=== PATIENT | female | born 1995 | race Caucasian/White ===

== ENCOUNTER 2021-06-26 13:01 | Inpatient (IN) | payer MEDICAID, SELFPAY ==
[~2021-06-26] VITALS: Ht 170.2 cm; Wt 59.9 kg
[2021-06-26] VITALS (10 sets, daily range): BP systolic 76–156
[~2021-06-26 13:01] MED LIST: FERR-69 PO; HYD10 PO; METH-373 PO; PROP10TA10 PO
--- NOTE | 2021-06-26 13:01 | NUR ---
BROUGHT IN BY [facility], PLACED IN BED #4 AND TRIAGED. REPORT GIVEN TO EMPERATRIZ
--- NOTE | 2021-06-26 13:05 | NUR ---
Pt brought by [facility] to name, pt presents to ER with low BP and altered level of conciousness , per family patient has been altered after getting covid vaccine 2 days ago, family also states she has not taken her thyroid medications, BP 156/86, HR 92, O2 96%, respirations even and unlabored, no N/V noted at this time, will cont to monitor.
[2021-06-26 13:46] LABS: BASOPHILS # (AUTO) 0.1 K/uL (0.0-0.2); BASOPHILS % (AUTO) 1.1 % (0.0-2.0); EOSINOPHILS # (AUTO) 0.1 K/uL (0.0-0.4); EOSINOPHILS % (AUTO) 1.4 % (0.0-4.0); HEMATOCRIT 34.7 % (36-48); HEMOGLOBIN 11.5 g/dL (12.0-16.0); LYMPHOCYTES # (AUTO) 2.7 K/uL (1.0-5.5); LYMPHOCYTES % (AUTO) 46.5 % (20.5-51.5); MEAN CORPUSCULAR HEMOGLOBIN 26 pg (27-31); MEAN CORPUSCULAR HGB CONC 33 % (32-36); MEAN CORPUSCULAR VOLUME 79 fL (79.0-98.0); MONOCYTES # (AUTO) 0.8 K/uL (0.0-1.0); MONOCYTES % (AUTO) 13.8 % (1.7-9.3); NEUTROPHILS # (AUTO) 2.2 K/uL (1.8-7.7); NEUTROPHILS % (AUTO) 37.2 % (40.0-70.0); PLATELET COUNT (AUTO) 141 K/uL (130-430); RED BLOOD CELL COUNT(AUTO) 4.37 MIL/uL (4.2-6.2); RED CELL DISTRIBUTION WIDTH 15.7 % (9.0-15.0); WHITE BLOOD COUNT (AUTO) 5.8 K/uL (4.8-10.8)
--- NOTE | 2021-06-26 13:51 | NUR ---
# 16 FR In and Out catheter with use of sterile technique. Immediate return of ml urine noted. Urine sample collected and sent to lab. Pt tolerated procedure WITH ASSISTANCE OF DEIRDRE MERRITT. Patient unable to toilet self.
[2021-06-26 14:06] LABS: ANION GAP 11 (5-15); CALCIUM 7.5 mg/dL (8.4-11.0); CHLORIDE 96 mmol/L (98-107); CREATININE 2.69 mg/dL (0.55-1.30); GLUCOSE 98 mg/dL (70-99); POTASSIUM 5.7 mmol/L (3.5-5.1); SODIUM SERUM 126 mmol/L (136-145); UREA NITROGEN, BLOOD 50 mg/dL (8-21)
[2021-06-26 14:09] LABS: BILIRUBIN,URINE NEGATIVE (NEGATIVE); BLOOD, URINE NEGATIVE (NEGATIVE); CLARITY/URINE CLEAR (CLEAR); COLOR,URINE YELLOW (YELLOW); GLUCOSE,URINE 1+ (NEGATIVE); KETONES,URINE NEGATIVE (NEGATIVE); LEUKOCYTE ESTERASE ,URINE TRACE (NEGATIVE); NITRITE, URINE NEGATIVE (NEGATIVE); PH,URINE 5.5 (5.0-8.0); PROTEIN URINE NEGATIVE (NEGATIVE); UROBILINOGEN,URINE 0.2 (0.2-1.0)
[2021-06-26 14:25] LABS: ALANINE AMINOTRANSFERASE 40 U/L (12-78); ALBUMIN 2.7 g/dL (3.4-4.8); ASPARTATE AMINOTRANSFERASE 34 U/L (10-37); FREE T4 (FREE THYROXINE) 2.8 ng/dl (0.8-1.5); TOTAL BILIRUBIN 0.6 mg/dL (0.0-1.0)
[2021-06-26 14:35] LABS: ACETAMINOPHEN < 1 ug/mL (1-30); ALCOHOL, BLOOD < 3 mg/dL (<10); GFR AFRICAN AMERICAN 27 mL/min (>90)
[2021-06-26 14:43] LABS: BARBITURATE, URINE NEGATIVE (NEG <=200); BENZODIAZEPINE, URINE NEGATIVE (NEG <=150); CANNABINOID, URINE NEGATIVE (NEG <=50); COCAINE, URINE NEGATIVE (NEG <=150); METHAMPHETAMINES SCREEN,URINE NEGATIVE (NEG <=500); OPIATE, URINE NEGATIVE (NEG <=100); PHENCYCLIDINE SCREEN,URINE NEGATIVE (NEG <=25); UR TRICYCLIC ANTIDEPRESSANTS NEGATIVE (NEG <=300); URINE AMPHETAMINE NEGATIVE (NEG <=500); URINE METHADONE NEGATIVE (NEG <=200); URINE OXYCODONE SCREEN NEGATIVE (NEG <=100); URINE PROPOXYPHENE SCREEN NEGATIVE (NEG <=300)
[2021-06-26 14:44] LABS: BACTERIA,URINE RARE /HPF (None Seen); HYALINE CASTS, URINE 0-10 /LPF (None Seen); RBC,URINE 0-3 /HPF (0-3); WBC,URINE 0-3 /HPF (0-3)
[2021-06-26 14:45] LABS: CALCIUM OXALATE CRYSTALS,UR 0-10 /HPF (None Seen); MUCUS,URINE 2+ /LPF (None Seen)
[2021-06-26 14:58] LABS: THYROID STIMULATING HORMONE < 0.01 uIu/mL (0.36-3.74)
--- NOTE | 2021-06-26 15:09 | NUR ---
PT LAYING IN BED, RESP EVEN AND UNLABORED, IN NAD. BP 79/33, HR-106. DR NAVARRO INFORMED, ORDERS FOR ANOTHER BOLUS. SAFETY PRECAUTIONS IN PLACE.
[2021-06-26] MEDS ORDERED: NACL 0.9% 1,000 ML IV ONE (15:30)
--- NOTE | 2021-06-26 16:13 | NUR ---
PT WITH EYES CLOSED, IN NAD. EASILY AROUSABLE, ALERT, IN NAD. DENIES ANY PAIN. BP 78/43, HR-89. DR NAVARRO INFORMED, NO FURTHER ORDERS AT THIS TIME. WILL BE ADMITTING TO ICU.
--- NOTE | 2021-06-26 16:51 | NUR ---
RN NOTES ADMITTED FROM ER FOR ELECTROLYTES IMBALANCE. CAME IN VIA GURNEY, PATIENT IS AWAKE AND ALERT, NOT IN ACUTE DISTRESS. ADMISSION CARE DONE, SINUS TACHYCARDIA ON THE MONITOR. SPO2 100% ON ROOM AIR. INITIAL VITAL SIGN AND ASSESSMENT DONE AND RECORDED. DENIES ANY DISCOMFORT AT THIS TIME. PATIENT KEPT COMFORTABLE. WILL CONTINUE TO MONITOR PATIENT.
--- NOTE | 2021-06-26 17:14 | NUR ---
Called Dr. Mathews with a consult, spoke with Beckie from the exchange
--- NOTE | 2021-06-26 17:21 | NUR ---
Called Dr. Stokes with a consult, spoke with Anne from the exchange
--- NOTE | 2021-06-26 17:25 | NUR ---
Dr. Guzman is aware of consult
--- NOTE | 2021-06-26 17:26 | NUR ---
MD CONSULT SPOKE TO DR. GENAO-SAYED ABOUT CONSULT, WILL COME AND SEE PATIENT.
--- NOTE | 2021-06-26 17:30 | NUR ---
Patient will be admitted to care of DR RUIZ. Admitted to unit. Will go to room . Belongings list completed. Complete and up to date summary report printed. SBAR report to be given at bedside with opportunity for questions.
[2021-06-26] MEDS: NACL 0.9% 1,000 ML IV SCH (17:40)
--- NOTE | 2021-06-26 18:10 | NUR ---
RN NOTES BP - 76/38 DR. Cecille RUIZ CALLED FOR ORDERS, WILL GIVE PATIENT 1 LITER NS BOLUS ORDERED.
--- NOTE | 2021-06-26 19:15 | NUR ---
Opening notes Received report from endorsing morning shift RN for continuity of care. Patient is lying in bed with IVF NS @ 100 mL/hr. Patient's vital signs blood pressure 113/61, heart rate 127, respirations 17, and SPO2 94%. Bed is locked and in lowest position. Fall and safety precautions is in place.
[2021-06-27] VITALS (23 sets, daily range): BP systolic 75–96
--- NOTE | 2021-06-27 01:03 | NUR ---
Paged Dr. Wong Doroteo s/w Meg[facility]
--- NOTE | 2021-06-27 01:18 | NUR ---
waiting for Dr Wong to call back to report patient's temperature 100.7 and no PRN Tylenol available.
[2021-06-27] MEDS: NACL 0.9% 1,000 ML IV SCH ×3 (01:45→09:32)
--- NOTE | 2021-06-27 01:54 | NUR ---
Received call from Dr Wong. Orders for tylenol received; refer to MAR for details.
[2021-06-27] MEDS ORDERED: ACETAMINOPHEN 325 MG TABLET PO PRN ×3 (02:00→07:15)
[2021-06-27] MEDS ORDERED: ACETAMINOPHEN 325 MG TABLET ONE (02:11)
--- NOTE | 2021-06-27 06:01 | NUR ---
Left a message to Dr. Reza-Sayed
[2021-06-27 06:07] LABS: BASOPHILS % (AUTO) 0.1 % (0.0-2.0); EOSINOPHILS # (AUTO) 0.2 K/uL (0.0-0.4); EOSINOPHILS % (AUTO) 3.6 % (0.0-4.0); HEMATOCRIT 27.8 % (36-48); HEMOGLOBIN 9.4 g/dL (12.0-16.0); LYMPHOCYTES # (AUTO) 2.4 K/uL (1.0-5.5); LYMPHOCYTES % (AUTO) 50.7 % (20.5-51.5); MEAN CORPUSCULAR HEMOGLOBIN 27 pg (27-31); MEAN CORPUSCULAR HGB CONC 34 % (32-36); MEAN CORPUSCULAR VOLUME 79 fL (79.0-98.0); MONOCYTES # (AUTO) 0.8 K/uL (0.0-1.0); MONOCYTES % (AUTO) 16.6 % (1.7-9.3); NEUTROPHILS # (AUTO) 1.4 K/uL (1.8-7.7); PLATELET COUNT (AUTO) 131 K/uL (130-430); RED BLOOD CELL COUNT(AUTO) 3.51 MIL/uL (4.2-6.2); RED CELL DISTRIBUTION WIDTH 15.4 % (9.0-15.0); WHITE BLOOD COUNT (AUTO) 4.8 K/uL (4.8-10.8)
[2021-06-27 06:40] LABS: ALBUMIN 2.4 g/dL (3.4-4.8); CALCIUM 7.7 mg/dL (8.4-11.0); CREATININE 0.87 mg/dL (0.55-1.30); POTASSIUM 4.6 mmol/L (3.5-5.1); TOTAL BILIRUBIN 0.3 mg/dL (0.0-1.0)
[2021-06-27] MEDS ORDERED: NALOXONE HCL 0.4 MG/ML AMP (NARCAN) IVP PRN ×2 (06:45)
[2021-06-27] MEDS ORDERED: LORazepam 2 MG/ML VIAL IVP PRN (06:45)
[2021-06-27] MEDS ORDERED: HYDROcodone/ACETAMIN 5-325 MG TAB (NORCO/ VICODIN) PO PRN (06:45)
[2021-06-27] MEDS ORDERED: ONDANSETRON HCL 4 MG/2 ML VIAL IVP PRN (06:45)
[2021-06-27] MEDS ORDERED: HYDROcodone/ACETAMIN 10-325 MG TAB PO PRN (06:45)
[2021-06-27] MEDS ORDERED: HYDROCORTISONE SOD SUCC 100 MG/2 ML VIAL IVP ONE (08:30)
[2021-06-27] MEDS ORDERED: HYDROCORTISONE 10 MG TABLET (CORTEF) PO SCH (09:00)
[2021-06-27] MEDS: cefTRIAXone 1 GM IVPB PREMIX 50 ML IV SCH (09:40)
[2021-06-27] MEDS: FERROUS SULFATE 325 MG TABLET.DR PO SCH ×2 (09:41→18:12)
[2021-06-27 09:48] LABS: HCG,QUAL RESULT NEGATIVE (NEGATIVE)
--- NOTE | 2021-06-27 11:10 | NUR ---
Patient BG was 72 this morning, reassessed BG was 123.
[2021-06-27] MEDS ORDERED: PROPRANOLOL HCL 10 MG TABLET (INDERAL) PO SCH ×2 (12:00→21:00)
[2021-06-27] MEDS ORDERED: methIMAzole 5 MG TABLET PO SCH ×2 (14:00→14:30)
--- NOTE | 2021-06-27 14:20 | NUR ---
DR Reza-Saygretchen assessed patient and made adjustments to the medications, suggested patient can be down graded to tele for continued monitoring of BP, BP low and ordered 500 bolus NS. Instructed if systolic is less then 90 to hold propranolol.
[2021-06-27] MEDS: HYDROCORTISONE SOD SUCC 100 MG/2 ML VIAL IVP SCH (14:26)
--- NOTE | 2021-06-27 14:30 | NUR ---
Dr. Rios came to see the patient , he said to bolus patient 500 ml of ns, and continue propanalol 20 mg bid but hold if sbp is <90
--- NOTE | 2021-06-27 18:15 | NUR ---
RN NOTES SPOKE TO DR. Regino STRICKLAND REGARDING CONSULT, WILL COME AND SEE PATIENT.
--- NOTE | 2021-06-27 19:04 | NUR ---
Closing Notes Patient has been alert and orientated all day, follows commands, calls when needing to use the restroom, takes medication with no issues, did not have a bowel movement today.
--- NOTE | 2021-06-27 22:14 | NUR ---
Pt BP is low with a SBP often in the 70's... HR WNLs when IV fluids are running... often elevate when IV not flowing due to pt bending left arm. Pt is hard to wake and once she opens her eyes they drift right back closed. Pt refused oral medication.
[2021-06-28] VITALS (23 sets, daily range): BP systolic 84–100
[2021-06-28] MEDS: methIMAzole 5 MG TABLET PO SCH ×3 (04:46→20:51)
[2021-06-28] MEDS: HYDROCORTISONE SOD SUCC 100 MG/2 ML VIAL IVP SCH ×4 (04:48→23:07)
[2021-06-28] MEDS: NACL 0.9% 1,000 ML IV SCH ×2 (04:50→16:22)
[2021-06-28 06:48] LABS: ALBUMIN 2.4 g/dL (3.4-4.8); CREATININE 0.58 mg/dL (0.55-1.30); PHOSPHORUS 3.9 mg/dL (2.7-4.5); POTASSIUM 4.5 mmol/L (3.5-5.1); TOTAL BILIRUBIN 0.2 mg/dL (0.0-1.0)
[2021-06-28 06:53] LABS: CALCIUM 6.9 mg/dL (8.4-11.0)
--- NOTE | 2021-06-28 06:56 | NUR ---
DR. Madai RUIZ MD PAGED AT THIS TIME FOR CRITICAL RESULTS. SPOKE WITH SHANNON AT THE EXCHANGE.
[2021-06-28] MEDS ORDERED: CALCIUM GLUCONATE 1 GM in NS 100 ML IV ONE (07:15)
[2021-06-28 07:23] LABS: C-REACTIVE PROTEIN QUANT 4.2 mg/dL (0-0.5)
--- NOTE | 2021-06-28 07:24 | NUR ---
Pt's calcium was 6.9 MD Wong was contacted see order
[2021-06-28 07:55] LABS: BASOPHILS % (AUTO) 0.3 % (0.0-2.0); HEMATOCRIT 27.2 % (36-48); LYMPHOCYTES # (AUTO) 0.8 K/uL (1.0-5.5); LYMPHOCYTES % (AUTO) 21.2 % (20.5-51.5); MEAN CORPUSCULAR HEMOGLOBIN 26 pg (27-31); MEAN CORPUSCULAR HGB CONC 33 % (32-36); MEAN CORPUSCULAR VOLUME 79 fL (79.0-98.0); MONOCYTES # (AUTO) 0.3 K/uL (0.0-1.0); MONOCYTES % (AUTO) 6.6 % (1.7-9.3); NEUTROPHILS # (AUTO) 2.7 K/uL (1.8-7.7); NEUTROPHILS % (AUTO) 71.9 % (40.0-70.0); PLATELET COUNT (AUTO) 126 K/uL (130-430); RED BLOOD CELL COUNT(AUTO) 3.43 MIL/uL (4.2-6.2); RED CELL DISTRIBUTION WIDTH 15.6 % (9.0-15.0); WHITE BLOOD COUNT (AUTO) 3.8 K/uL (4.8-10.8)
--- NOTE | 2021-06-28 08:00 | NUR ---
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
[2021-06-28] MEDS: FERROUS SULFATE 325 MG TABLET.DR PO SCH ×2 (08:11→17:58)
[2021-06-28] MEDS: cefTRIAXone 1 GM IVPB PREMIX 50 ML IV SCH (09:33)
[2021-06-28 13:42] LABS: ERYTHROCYTE SEDIMENTATION RATE 16 MM/HR (0-20)
--- NOTE | 2021-06-28 16:07 | NUR ---
Dietitian Recommendations * Regular, high fiber diet PILY RD Please refer to Nutrition Assessment for details. Addendum: 06/28/21 at [address] Amended: Links added.
[2021-06-28] MEDS ORDERED: INSULIN ASPART 100 UNITS/ML, 10 ML VIAL (NovoLOG) SUBCUT PRN (17:00)
[2021-06-28] MEDS ORDERED: INSULIN LISPRO SLIDING SCALE 100 UNITS/ML VIAL (humaLOG) SUBCUT PRN (17:15)
[2021-06-28] MEDS: PROPRANOLOL HCL 10 MG TABLET (INDERAL) PO SCH (20:50)
[2021-06-29] VITALS (15 sets, daily range): BP systolic 94–108
[2021-06-29] MEDS: NACL 0.9% 1,000 ML IV SCH ×2 (03:45→04:16)
[2021-06-29] MEDS: HYDROCORTISONE SOD SUCC 100 MG/2 ML VIAL IVP SCH ×2 (06:06→13:50)
--- NOTE | 2021-06-29 06:13 | NUR ---
PER DR. MITCH KULKARNI FOR PT TO TRANSFER TO TELE.
[2021-06-29 07:07] LABS: BASOPHILS % (AUTO) 0.1 % (0.0-2.0); HEMATOCRIT 25.4 % (36-48); HEMOGLOBIN 8.4 g/dL (12.0-16.0); LYMPHOCYTES # (AUTO) 1.2 K/uL (1.0-5.5); LYMPHOCYTES % (AUTO) 28.2 % (20.5-51.5); MEAN CORPUSCULAR HEMOGLOBIN 26 pg (27-31); MEAN CORPUSCULAR HGB CONC 33 % (32-36); MEAN CORPUSCULAR VOLUME 78 fL (79.0-98.0); MONOCYTES # (AUTO) 0.3 K/uL (0.0-1.0); MONOCYTES % (AUTO) 6.7 % (1.7-9.3); NEUTROPHILS # (AUTO) 2.9 K/uL (1.8-7.7); PLATELET COUNT (AUTO) 162 K/uL (130-430); RED BLOOD CELL COUNT(AUTO) 3.23 MIL/uL (4.2-6.2); RED CELL DISTRIBUTION WIDTH 15.5 % (9.0-15.0); WHITE BLOOD COUNT (AUTO) 4.4 K/uL (4.8-10.8)
[2021-06-29 07:31] LABS: CALCIUM 7.3 mg/dL (8.4-11.0); CREATININE 0.66 mg/dL (0.55-1.30); PHOSPHORUS 2.2 mg/dL (2.7-4.5); POTASSIUM 4.2 mmol/L (3.5-5.1)
[2021-06-29 08:30] LABS: C-REACTIVE PROTEIN QUANT 2.2 mg/dL (0-0.5)
[2021-06-29] MEDS: FERROUS SULFATE 325 MG TABLET.DR PO SCH ×2 (08:58→17:02)
[2021-06-29] MEDS: cefTRIAXone 1 GM IVPB PREMIX 50 ML IV SCH (08:59)
[2021-06-29] MEDS: PROPRANOLOL HCL 10 MG TABLET (INDERAL) PO SCH (09:01)
[2021-06-29] MEDS: methIMAzole 5 MG TABLET PO SCH (09:01)
[2021-06-29 11:37] LABS: ERYTHROCYTE SEDIMENTATION RATE 16 MM/HR (0-20)
[2021-06-29] MEDS ORDERED: NA PHOS 15 MM in NS 250 ML IV ONE (13:00)
[2021-06-29] MEDS ORDERED: HYDROCORTISONE 10 MG TABLET (CORTEF) PO ONE (16:00)
[2021-06-29] MEDS ORDERED: PROP10TA10 PO (17:13)
[2021-06-29] MEDS ORDERED: HYD10 PO (17:13)
[2021-06-29] MEDS ORDERED: FERR-69 PO (17:13)
[2021-06-29] MEDS ORDERED: METH-373 PO (17:13)
--- NOTE | 2021-06-29 18:17 | NUR ---
Obtained order to d/c pt home. Reviewed d/c instructions with pt and pt verbalized understanding, all questions answered. Pt belonging list completed. D/c iv site and pt tolerated well. Reviewed new medication reconcilation and pt verbalized understand. pt to f/u with primary md on thursday. prescriptions sent to pts' pharmacy.
--- NOTE | 2021-06-29 19:00 | NUR ---
Escorted our via wheelchair, with significant other, Tien Nolasco. No distress.
[2021-06-29] MEDS ORDERED: HYDROCORTISONE 10 MG TABLET (CORTEF) PO SCH (21:00)
== END 2021-06-29 19:00 | disposition home or self-care (01) | DRG 427 ==
LOC: SED 13:01 → SIC 15:39
PROVIDERS: ADMIT Preventive Medicine Preventive Medicine/Occupational Environmental Medicine; ATTEND Preventive Medicine Preventive Medicine/Occupational Environmental Medicine
DX: E05.90 Thyrotoxicosis, unspecified without thyrotoxic crisis or storm (principal); D61.818 Other pancytopenia; E43 Unspecified severe protein-calorie malnutrition; G93.40 Encephalopathy, unspecified; N17.9 Acute kidney failure, unspecified; I95.9 Hypotension, unspecified; E03.9 Hypothyroidism, unspecified; E87.1 Hypo-osmolality and hyponatremia; E27.1 Primary adrenocortical insufficiency; N39.0 Urinary tract infection, site not specified; E86.0 Dehydration; E87.5 Hyperkalemia; E83.39 Other disorders of phosphorus metabolism; E83.52 Hypercalcemia; E88.09 Other disorders of plasma-protein metabolism, not elsewhere classified; Z20.822 Contact with and (suspected) exposure to COVID-19; N18.9 Chronic kidney disease, unspecified; R73.9 Hyperglycemia, unspecified; T38.0X5A Adverse effect of glucocorticoids and synthetic analogues, initial encounter; Y92.89 Other specified places as the place of occurrence of the external cause; Z79.899 Other long term (current) drug therapy; Z68.20 Body mass index [BMI] 20.0-20.9, adult
CPT/HCPCS: 36415; 71045; 80048; 80053; 80307; 81000; 82140; 82962; 83605; 83735; 84100; 84439; 84443; 84484; 84703; 85025; 85651-TC; 86140; 87040; 87081; 87086; 96360; 99285; G0480; G0481; G0482; J0610; J0696; J1720; J7050

== ENCOUNTER 2021-09-15 15:50 | Emergency (ER) | payer MEDICAID ==
[~2021-09-15] VITALS: Ht 170.2 cm; Wt 58.1 kg
[2021-09-15 16:30] VITALS: BP_SYST 122
[2021-09-15] MEDS ORDERED: TETRACAINE HCL/PF 0.5% OPHTHALMIC DROPS 4 ML OP ONE (16:45)
[2021-09-15] MEDS ORDERED: FLUORESCEIN SODIUM 1 MG OPHTHALMIC STRIP OP ONE (16:45)
--- NOTE | 2021-09-15 17:25 | NUR ---
In ER bed 5. Has bilateral eye redness for 3 days. Awaiting
--- NOTE | 2021-09-15 17:30 | NUR ---
ER at bedside examining patient.
--- NOTE | 2021-09-15 18:00 | NUR ---
Pt c/o eye irritation with no resolution with use of medication for conjunctivitis.
--- NOTE | 2021-09-15 18:30 | NUR ---
Pt received eye exam by Dr. Iniguez. Pt tolerated well.
[2021-09-15] MEDS ORDERED: POLYTRIM EACH EYE (18:59)
[2021-09-15] MEDS ORDERED: OLOP2.5D11 EACH EYE (18:59)
--- NOTE | 2021-09-15 19:25 | NUR ---
Patient given written and verbal discharge instructions and verbalizes understanding. ER SUNNI JAIME discussed with patient the results and treatment provided. Patient in stable condition. ID arm band removed. Rx of EYE GTTS given. Patient educated on pain management and to follow up with PMD. Pain Scale 0. Opportunity for questions provided and answered. Medication side effect fact sheet provided.
== END 2021-09-15 19:46 | disposition home or self-care (01) ==
LOC: SED 15:50
DX: H10.33 Unspecified acute conjunctivitis, bilateral (principal); Z79.899 Other long term (current) drug therapy
CPT/HCPCS: 99283

== ENCOUNTER 2021-09-23 20:38 | Emergency (ER) | payer MEDICAID ==
[~2021-09-23] VITALS: Ht 167.6 cm; Wt 54.4 kg
[~2021-09-23 20:38] MED LIST changes: +OLOP2.5D11 EACH EYE; +POLYTRIM EACH EYE
[2021-09-23 20:52] VITALS: BP_SYST 106
[2021-09-23 21:28] LABS: BASOPHILS # (AUTO) 0.1 K/uL (0.0-0.2); BASOPHILS % (AUTO) 0.5 % (0.0-2.0); EOSINOPHILS # (AUTO) 0.2 K/uL (0.0-0.4); EOSINOPHILS % (AUTO) 1.8 % (0.0-4.0); HEMATOCRIT 47.5 % (36-48); HEMOGLOBIN 16.2 g/dL (12.0-16.0); LYMPHOCYTES % (AUTO) 24.6 % (20.5-51.5); MEAN CORPUSCULAR HEMOGLOBIN 29 pg (27-31); MEAN CORPUSCULAR HGB CONC 34 % (32-36); MEAN CORPUSCULAR VOLUME 86 fL (79.0-98.0); MONOCYTES % (AUTO) 8.4 % (1.7-9.3); NEUTROPHILS # (AUTO) 7.9 K/uL (1.8-7.7); NEUTROPHILS % (AUTO) 64.7 % (40.0-70.0); PLATELET COUNT (AUTO) 394 K/uL (130-430); RED BLOOD CELL COUNT(AUTO) 5.55 MIL/uL (4.2-6.2); RED CELL DISTRIBUTION WIDTH 15.9 % (9.0-15.0); WHITE BLOOD COUNT (AUTO) 12.3 K/uL (4.8-10.8)
[2021-09-23 21:37] LABS: ANION GAP 9 (5-15); CALCIUM 9.4 mg/dL (8.4-11.0); CHLORIDE 96 mmol/L (98-107); CREATININE 0.84 mg/dL (0.55-1.30); GLUCOSE 136 mg/dL (70-99); POTASSIUM 4.5 mmol/L (3.5-5.1); SODIUM SERUM 131 mmol/L (136-145); UREA NITROGEN, BLOOD 17 mg/dL (8-21)
[2021-09-23 21:49] LABS: GFR AFRICAN AMERICAN 105 mL/min (>90)
[2021-09-23 21:53] LABS: STREPTOCOCCUS A SCREEN (RAPID) NEGATIVE (NEGATIVE)
[2021-09-23 21:55] LABS: ALANINE AMINOTRANSFERASE 29 U/L (12-78); ALBUMIN 3.8 g/dL (3.4-4.8); ASPARTATE AMINOTRANSFERASE 26 U/L (10-37); FREE T4 (FREE THYROXINE) 1.8 ng/dl (0.8-1.5); THYROID STIMULATING HORMONE 0.09 uIu/mL (0.36-3.74); TOTAL BILIRUBIN 0.5 mg/dL (0.0-1.0)
[2021-09-23 21:58] LABS: ACETONE, SERUM NEGATIVE (NEGATIVE); C-REACTIVE PROTEIN QUANT 2.7 mg/dL (0-0.5)
[2021-09-23] MEDS ORDERED: DEXAMETHASONE SOD PHOSPHATE 4 MG/ML VIAL PO ONE (23:15)
[2021-09-23] MEDS ORDERED: NACL 0.9% 2,000 ML IV ONE (23:30)
[2021-09-23] MEDS ORDERED: KETOROLAC TROMETHAMINE 30 MG VIAL IVP ONE (23:45)
[2021-09-24] MEDS ORDERED: NACL 0.9% 1,000 ML IV ONE (02:15)
[2021-09-24 02:28] LABS: BILIRUBIN,URINE NEGATIVE (NEGATIVE); BLOOD, URINE NEGATIVE (NEGATIVE); CLARITY/URINE CLEAR (CLEAR); COLOR,URINE YELLOW (YELLOW); GLUCOSE,URINE NEGATIVE (NEGATIVE); KETONES,URINE NEGATIVE (NEGATIVE); LEUKOCYTE ESTERASE ,URINE 1+ (NEGATIVE); NITRITE, URINE NEGATIVE (NEGATIVE); PROTEIN URINE NEGATIVE (NEGATIVE); UROBILINOGEN,URINE 0.2 (0.2-1.0)
[2021-09-24 02:43] LABS: BACTERIA,URINE MANY /HPF (None Seen); RBC,URINE 0-3 /HPF (0-3)
[2021-09-24] MEDS ORDERED: TRAM50TA PO (04:09)
[2021-09-24 04:42] VITALS: BP_SYST 101
== END 2021-09-24 04:42 | disposition home or self-care (01) ==
LOC: SED 20:38
DX: B27.90 Infectious mononucleosis, unspecified without complication (principal); Z20.822 Contact with and (suspected) exposure to COVID-19
CPT/HCPCS: 36415; 70360; 71045; 80053; 81000; 81025; 82009; 82962; 83605; 84439; 84443; 85025; 86140; 86308; 86403; 87081; 87086; 87426; 93005; 96360; 96361 ×2; 99285; J1100; J7030 ×2